=== PATIENT | female | born 2000 | race African-American/Black ===

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

== ENCOUNTER 2021-06-01 05:32 | Day surgery (SDC) | payer OTHER ==
[2021-05-27 15:28] VITALS: BMI 33.5
[2021-06-01] MEDS ORDERED: BUPIVACAINE HCL/PF 0.5% (5MG/ML) 10 ML VIAL ONE (14:41)
[2021-06-01] MEDS ORDERED: MIDAZOLAM HCL 2 MG/2 ML SINGLE DOSE VIAL ONE (14:42)
[2021-06-01] MEDS ORDERED: LIDOCAINE 1%/EPI 1:100000 (50 ML MULTI DOSE VIAL) INF ONE ×2 (14:57)
[2021-06-01] MEDS ORDERED: BUPIVACAINE HCL/PF 0.5% (5 MG/ML) 30 ML VIAL IJ ONE (15:08)
[2021-06-01] MEDS ORDERED: oxyCODONE HCL 5 MG TABLET PO PRN (16:01)
[2021-06-01] MEDS ORDERED: ONDANSETRON 4 MG/2 ML VIAL IVPUSH PRN (16:01)
[2021-06-01] MEDS ORDERED: LACTATED RINGERS SOLUTION 1,000 ML IV SCH (16:15)
[2021-06-01] MEDS ORDERED: IBUPROFEN 600 MG TABLET (FP) PO ONE ×2 (17:35→17:40)
[2021-06-01 17:56] VITALS: BP 137/76; PULSE 90; TEMP 98.2
== END 2021-06-01 17:50 | disposition home or self-care (01) ==
LOC: JASU-SURG 05:32
PROVIDERS: ATTEND Surgery Surgical Oncology
PROC: 0HBT0ZX Excision of Right Breast, Open Approach, Diagnostic (ICD-10-PCS; principal; 2021-06-01 14:00)
DX: D24.1 Benign neoplasm of right breast (principal)
CPT/HCPCS: 81025; 88307-TC; 94760

== ENCOUNTER 2024-10-10 14:46 | Emergency (ER) | payer OTHER ==
[2024-10-10 15:00] VITALS: BP 129/79; PULSE 107; RESP 18; TEMP 98.2; BMI 36.1
[2024-10-10] MEDS ORDERED: ACETAMINOPHEN 500 MG TABLET (FP) ONE (15:39)
[2024-10-10] MEDS ORDERED: DEXAMETHASONE SOD PHOSPHATE 10 MG/1 ML VIAL ONE (15:39)
[2024-10-10] MEDS: DEXAMETHASONE SOD PHOSPHATE 10 MG/1 ML VIAL PO ONE (15:46)
[2024-10-10] MEDS: ACETAMINOPHEN 500 MG TABLET (FP) PO ONE (15:46)
[2024-10-10] MEDS: MAG HYDROX/ALH/SMC/DPHA/LIDO 240 ML MOUTHWASH MM SCH (17:39)
[2024-10-10 18:00] LABS: THROAT:GRP A STREP DETECTED (NOTDETECTED)
[2024-10-10] MEDS ORDERED: PENICILLIN G BENZATHINE 1,200,000 UNIT/2 ML PFS IM ONE (18:10)
[2024-10-10] MEDS: PENICILLIN G BENZATHINE 1,200,000 UNIT/2 ML PFS IM ONE (18:15)
== END 2024-10-10 18:40 | disposition home or self-care (01) ==
LOC: JERFT 14:46
DX: J03.00 Acute streptococcal tonsillitis, unspecified (principal); R00.0 Tachycardia, unspecified
CPT/HCPCS: 87637-QW; 87651; 99284-25; J1100